=== PATIENT | female | born 1970 | race Hispanic/Latino ===

== ENCOUNTER → 2025-03-10 | Outpatient (REF) | payer OTHER ==
[2025-04-08 14:03] VITALS: TEMP 98
[2025-04-08 14:40] VITALS: BP 133/81; PULSE 75; RESP 16; O2SAT 97
== END ==
LOC: RAD 12:03 → OR 03-11 13:35 → EDSTATUS 04-08 16:00
PROVIDERS: ATTEND Internal Medicine Gastroenterology
DX: Z01.810 Encounter for preprocedural cardiovascular examination (principal); K21.9 Gastro-esophageal reflux disease without esophagitis; R12 Heartburn; Z12.11 Encounter for screening for malignant neoplasm of colon
CPT/HCPCS: 43239; 45385; 93005; J2250; J2470

== ENCOUNTER → 2025-04-08 | Day surgery (SDC) | payer OTHER ==
[~2025-04-08] MED LIST: FENTANYL CITRATE/PF 100MCG/2 ML INJ ONE; MIDAZOLAM HCL 2 MG/2 ML VIAL ONE; PROPOFOL IV EMULSION 10 MG/ML 20 ML VIAL ONE
[2025-04-08] MEDS: LACTATED RINGER'S 1,000 ML BAG IV ONE (10:28)
== END ==
LOC: OR 16:45
PROVIDERS: ATTEND Internal Medicine Gastroenterology
DX: Z01.818 Encounter for other preprocedural examination (principal); Z53.8 Procedure and treatment not carried out for other reasons; Z12.11 Encounter for screening for malignant neoplasm of colon; K30 Functional dyspepsia; K21.9 Gastro-esophageal reflux disease without esophagitis
CPT/HCPCS: J2250; J2470; J2704; J3010; J7121; 43239; 45385